=== PATIENT | female | born 1945 | race Caucasian/White ===

== ENCOUNTER → 2018-07-05 | Outpatient (CLI) | payer MEDICARE, OTHER ==
[2018-07-05 10:24] LABS: MEAN CORPUSCULAR HEMOGLOBIN 29.3 pg (27.0-34.8); MEAN CORPUSCULAR HGB CONC 33.1 g/dL (32.4-35.8); MEAN CORPUSCULAR VOLUME 88.6 fL (80-100); RED BLOOD COUNT 4.85 x10^6/uL (3.82-5.3)
[2018-07-05 10:25] LABS: BASOPHILS # (AUTO) 0.02 x10^3/uL (0-0.1); BASOPHILS % (AUTO) 1 % (0-1); EOSINOPHILS # (AUTO) 0.11 x10^3/uL (0-0.4); EOSINOPHILS % (AUTO) 2 % (1-7); LYMPHOCYTES # (AUTO) 1.65 x10^3/uL (1-3.4); LYMPHOCYTES % (AUTO) 31 % (22-44); MD NO; MEAN PLATELET VOLUME 8.6 fL (7.4-10.4); MONOCYTES # (AUTO) 0.33 x10^3/uL (0.2-0.8); MONOCYTES % (AUTO) 6 % (2-9); NEUTROPHILS # (AUTO) 3.28 x10^3/uL (1.8-6.8); NEUTROPHILS % (AUTO) 61 % (42-75); PLATELET COUNT 250 x10^3/uL (130-400); RED CELL DISTRIBUTION WIDTH 14.5 % (9.6-15.2)
[2018-07-05 10:28] LABS: ANION GAP 4 mmol/L (5-15); CALCIUM 8.9 mg/dL (8.5-10.1); CHLORIDE 109 mmol/L (98-107); CREATININE 0.86 mg/dL (0.55-1.02)
== END | disposition home or self-care (01) ==
LOC: STAR 08:53
PROVIDERS: ATTEND Orthopaedic Surgery
DX: Z01.818 Encounter for other preprocedural examination (principal); M17.0 Bilateral primary osteoarthritis of knee; M19.011 Primary osteoarthritis, right shoulder; Z96.641 Presence of right artificial hip joint
CPT/HCPCS: 36415; 80048; 85025; 87081; 93005

== ENCOUNTER 2018-07-11 06:18 | Observation (INO) | payer MEDICARE, OTHER ==
[~2018-07-11] VITALS: Ht 162.6 cm; Wt 73.1 kg
[~2018-07-11 06:18] MED LIST: ASCO500T8 PO; CALC500T93 PO; CHOL2000 PO; FISH1CAP PO; GLUC-32 PO; MULT1TAB60 PO; TURM538C PO; VIT1CAPS11 PO
[2018-07-11] MEDS ORDERED: LACTATED RINGERS 1,000 ML IV SCH (06:55)
[2018-07-11] MEDS ORDERED: GABAPENTIN 300 MG CAPSULE PO ONE (07:00)
[2018-07-11] MEDS ORDERED: ACETAMINOPHEN 500 MG TABLET PO ONE (07:00)
[2018-07-11 07:24] VITALS: BP 109/74
[2018-07-11] MEDS ORDERED: MIDAZOLAM 1 MG/ML, 2ML ONE (07:54)
[2018-07-11] MEDS ORDERED: FENTANYL PF 100 MCG/2ML ONE ×2 (07:54→10:15)
[2018-07-11] MEDS ORDERED: FENTANYL PF 250 MCG/5ML ONE (09:22)
[2018-07-11] MEDS ORDERED: LIDOCAINE 2%, 6 ML JEL.PF.APP MM ONE (09:24)
[2018-07-11] MEDS ORDERED: SCOPOLAMINE PATCH, 1.5MG PATCH.TD72 TD ONE (09:26)
[2018-07-11] MEDS ORDERED: PROMETHAZINE 25 MG/ML, 1ML IV PRN (09:30)
[2018-07-11] MEDS ORDERED: OXYcodone 5 MG/5 ML ORAL.SOL UDC PO PRN (09:30)
[2018-07-11] MEDS ORDERED: ALBUTEROL/IPRATROPIUM 2.5MG/0.5MG, 3 ML NPPB PRN (09:30)
[2018-07-11] MEDS ORDERED: MIDAZOLAM 1 MG/ML, 2ML IV PRN (09:30)
[2018-07-11] MEDS ORDERED: ONDANSETRON 2MG/ML, 2ML IV PRN ×2 (09:30→10:30)
[2018-07-11] MEDS ORDERED: MEPERIDINE/PF 25MG/0.5ML IVPush PRN (09:30)
[2018-07-11] MEDS ORDERED: METOPROLOL 1 MG/ML, 5ML IV PRN (09:30)
[2018-07-11] MEDS ORDERED: hydrALAzine 20 MG/ML, 1ML IV PRN (09:30)
[2018-07-11] MEDS ORDERED: OXYcodone 5 MG/5 ML ORAL.SOL UDC ONE (10:15)
[2018-07-11] MEDS ORDERED: HYDROmorphone 2 MG/ML, 1ML ONE (10:15)
[2018-07-11] MEDS ORDERED: HYDROmorphone 1 MG/ML, 1ML INJ IVPush PRN (10:30)
[2018-07-11] MEDS: FENTANYL PF 100 MCG/2ML IV PRN ×2 (10:30→10:41)
[2018-07-11] MEDS ORDERED: DIAZEPAM 5 MG TABLET PO PRN (10:30)
[2018-07-11] MEDS ORDERED: BISACODYL 10 MG SUPP PR PRN (10:30)
[2018-07-11] MEDS ORDERED: ONDANSETRON 4 MG TABLET PO PRN (10:30)
[2018-07-11] MEDS ORDERED: SCOPOLAMINE PATCH, 1.5MG PATCH.TD72 TD SCH (10:30)
[2018-07-11] MEDS ORDERED: ALUMINUM/MAG/SIMETHICONE 30 ML UDC PO PRN (10:30)
[2018-07-11] MEDS ORDERED: POLYETHYLENE GLYCOL 17 GM PACKET PO PRN (10:30)
[2018-07-11] MEDS ORDERED: PROMETHAZINE 12.5 MG SUPP PR PRN (10:30)
[2018-07-11] MEDS ORDERED: ZOLPIDEM 5MG TABLET PO PRN (10:30)
[2018-07-11] MEDS: HYDROmorphone 2 MG/ML, 1ML IVPush PRN ×2 (10:30→10:41)
[2018-07-11] MEDS ORDERED: MAGNESIUM HYDROXIDE 8%, 30ML UDC PO PRN (10:30)
[2018-07-11] MEDS ORDERED: DEXAMETHASONE 4 MG/ML, 1ML IVPush ONE (10:30)
[2018-07-11] MEDS ORDERED: DIPHENHYDRAMINE 50 MG CAPSULE PO PRN (10:30)
[2018-07-11] MEDS ORDERED: PSYLLIUM PACKET PO PRN (10:30)
[2018-07-11] MEDS ORDERED: PROMETHAZINE 25 MG/ML, 1ML IM PRN (10:30)
[2018-07-11] MEDS ORDERED: SENNA/DOCUSATE TABLET PO PRN (10:30)
[2018-07-11] MEDS ORDERED: TRANEXAMIC ACID 1,000 MG in SODIUM CHLORIDE 0.9% 100 ML IVPB ONE (10:45)
[2018-07-11] MEDS ORDERED: ONDANSETRON 2MG/ML, 2ML ONE (11:11)
[2018-07-11] MEDS ORDERED: CEFAZOLIN 1,000 MG ONE (11:11)
[2018-07-11] MEDS ORDERED: DEXAMETHASONE 4 MG/ML, 1ML ONE (11:11)
[2018-07-11] MEDS ORDERED: BUPIVACAINE/PF 0.25% ONE (11:11)
[2018-07-11] MEDS ORDERED: PROPOFOL 10 MG/ML, 20ML ONE (11:11)
[2018-07-11 11:47] VITALS: BP 106/56
[2018-07-11] MEDS: KETOROLAC 30 MG/1 ML IV SCH ×2 (12:49→22:02)
[2018-07-11] MEDS: D5%-0.45% NACL 1,000 ML IV SCH ×2 (12:49→20:30)
[2018-07-11] MEDS: ACETAMINOPHEN 500 MG TABLET PO SCH ×2 (15:28→22:02)
[2018-07-11 15:32] VITALS: BP 106/56
[2018-07-11] MEDS: ASPIRIN 81 MG TABLET EC PO SCH ×2 (18:07→21:00)
[2018-07-11 19:12] VITALS: BP 90/57
[2018-07-11] MEDS: CEFAZOLIN PMX 2GM/50ML 50 ML IVPB SCH (19:51)
[2018-07-11] MEDS: DOCUSATE 100 MG CAPSULE PO SCH (22:02)
[2018-07-12 00:13] VITALS: BP_SYST 87; BP_SYST 89; BP_DIAS 47; BP_DIAS 56
[2018-07-12] MEDS: D5%-0.45% NACL 1,000 ML IV SCH (02:35)
[2018-07-12] MEDS: ACETAMINOPHEN 500 MG TABLET PO SCH ×2 (04:09→08:58)
[2018-07-12] MEDS: CEFAZOLIN PMX 2GM/50ML 50 ML IVPB SCH (04:09)
[2018-07-12 05:11] VITALS: BP_SYST 84; BP_SYST 89; BP_DIAS 47
[2018-07-12] MEDS: KETOROLAC 30 MG/1 ML IV SCH (05:57)
[2018-07-12] MEDS ORDERED: DEXAMETHASONE 4 MG/ML, 1ML IVPush ONE (06:00)
[2018-07-12] MEDS ORDERED: SODIUM CHLORIDE 0.9% 1,000ML IVBOLUS ONE (07:00)
[2018-07-12 07:41] VITALS: BP 89/45
[2018-07-12] MEDS: ASPIRIN 81 MG TABLET EC PO SCH (08:58)
[2018-07-12] MEDS: DOCUSATE 100 MG CAPSULE PO SCH (08:58)
[2018-07-12] MEDS ORDERED: MULTIVITAMINS/MINERALS TABLET PO SCH (09:00)
[2018-07-12 10:39] VITALS: BP 89/47
== END 2018-07-12 11:21 | disposition home or self-care (01) ==
LOC: OUT 06:18 → ORIP 10:16 → 4NOR 11:36 → DCLOUNGE 07-12 11:14
PROVIDERS: ADMIT Orthopaedic Surgery; ATTEND Orthopaedic Surgery
DX: M17.12 Unilateral primary osteoarthritis, left knee (principal); Z88.1 Allergy status to other antibiotic agents; Z88.8 Allergy status to other drugs, medicaments and biological substances; Z98.890 Other specified postprocedural states; Z79.899 Other long term (current) drug therapy
CPT/HCPCS: 27447; 36415; 64447; 73560; 85014; 85018; 96365; 96366; 96375; 96376; 97110; 97161; C1713; C1776; G0378; J0171; J0690; J1100; J1170; J1885; J2250; J2405; J2704; J2795; J3010; J3490; J7030; J7120; Q0162

== ENCOUNTER 2020-07-16 07:33 | Outpatient (CLI) | payer MEDICARE, OTHER ==
[~2020-07-16 07:33] MED LIST changes: +MULT-449 PO; -MULT1TAB60 PO
[2020-07-16 08:45] LABS: BASOPHILS % (AUTO) 1 % (0-1); EOSINOPHILS % (AUTO) 3 % (1-7); LYMPHOCYTES % (AUTO) 28 % (22-44); MEAN CORPUSCULAR HEMOGLOBIN 29.2 pg (27.0-34.8); MEAN CORPUSCULAR HGB CONC 32.9 g/dL (32.4-35.8); MEAN PLATELET VOLUME 8.5 fL (7.4-10.4); MONOCYTES % (AUTO) 7 % (2-9); NEUTROPHILS % (AUTO) 62 % (42-75); PLATELET COUNT 244 x10^3/uL (130-400); RED CELL DISTRIBUTION WIDTH 14.5 % (9.6-15.2)
[2020-07-16 08:48] LABS: MD NO
[2020-07-16 08:52] LABS: ANION GAP 4 mmol/L (5-15); CALCIUM 9.1 mg/dL (8.5-10.1); CHLORIDE 109 mmol/L (98-107); CREATININE 0.84 mg/dL (0.55-1.02)
== END 2020-07-16 23:59 | disposition home or self-care (01) ==
LOC: STAR 07:33
PROVIDERS: ATTEND Orthopaedic Surgery
DX: Z01.812 Encounter for preprocedural laboratory examination (principal); Z20.822 Contact with and (suspected) exposure to COVID-19; Z01.818 Encounter for other preprocedural examination; M17.11 Unilateral primary osteoarthritis, right knee; Z79.01 Long term (current) use of anticoagulants
CPT/HCPCS: 36415; 80048; 85025; 87081; 93005; U0003

== ENCOUNTER 2020-07-22 06:55 | Observation (INO) | payer MEDICARE, OTHER ==
[~2020-07-22] VITALS: Ht 160 cm; Wt 86.3 kg
[~2020-07-22 06:55] MED LIST changes: +EPINEPHRINE 1 MG/ML, 1ML ONE; +KETOROLAC 60 MG/2 ML ONE; +ROPIvacaine/PF 0.2%, 20 ML ONE; +SODIUM CHLORIDE 0.9% 50 ML ONE; +TRANEXAMIC ACID 100 MG/ML, 10ML ONE; +VANCOMYCIN 1,000 MG ONE
[2020-07-22] MEDS ORDERED: CHLORHEXIDINE 15 ML UDC PO ONE (07:30)
[2020-07-22] MEDS ORDERED: LACTATED RINGERS 1,000 ML IV SCH (07:30)
[2020-07-22] MEDS ORDERED: TRANEXAMIC ACID 1,000 MG in SODIUM CHLORIDE 0.9% 100 ML IVPB ONE (09:30)
[2020-07-22] MEDS ORDERED: DIAZEPAM 5 MG TABLET PO PRN (09:30)
[2020-07-22] MEDS ORDERED: ONDANSETRON 2MG/ML, 2ML IV PRN (09:30)
[2020-07-22] MEDS ORDERED: HYDROmorphone 1 MG/ML, 1ML INJ IVPush PRN (09:30)
[2020-07-22] MEDS ORDERED: OXYcodone ORAL.CONC 20 MG/ML PO PRN (09:30)
[2020-07-22] MEDS ORDERED: PROMETHAZINE 25 MG/ML, 1ML IM PRN (09:30)
[2020-07-22] MEDS ORDERED: KETOROLAC 30 MG/1 ML IV SCH (09:30)
[2020-07-22] MEDS ORDERED: MIDAZOLAM 1 MG/ML, 2ML ONE (09:44)
[2020-07-22] MEDS ORDERED: FENTANYL PF 250 MCG/5ML ONE (09:45)
[2020-07-22] MEDS ORDERED: LIDOCAINE-MPF 2% ,5ML ONE (10:26)
[2020-07-22] MEDS ORDERED: DEXAMETHASONE 4 MG/ML, 5ML ONE (10:26)
[2020-07-22] MEDS ORDERED: ONDANSETRON 2MG/ML, 2ML ONE (10:26)
[2020-07-22] MEDS ORDERED: CEFAZOLIN 1,000 MG ONE ×2 (10:26)
[2020-07-22] MEDS ORDERED: ROCURONIUM 10MG/ML,5ML ONE (10:26)
[2020-07-22] MEDS ORDERED: PROPOFOL 10 MG/ML, 20ML ONE (10:26)
[2020-07-22] MEDS ORDERED: ACETAMINOPHEN 325 MG TABLET PO PRN (10:30)
[2020-07-22] MEDS ORDERED: MEPERIDINE/PF 25MG/0.5ML IVPush PRN (10:30)
[2020-07-22] MEDS ORDERED: hydrALAzine 20 MG/ML, 1ML IV PRN (10:30)
[2020-07-22] MEDS ORDERED: ONDANSETRON 2MG/ML, 2ML IVPush PRN (10:30)
[2020-07-22] MEDS ORDERED: LABETALOL 5MG/ML, 20ML IV PRN (10:30)
[2020-07-22] MEDS ORDERED: DIAZEPAM 5 MG/ML, 2ML IVPush PRN (10:30)
[2020-07-22] MEDS ORDERED: OXYcodone 5 MG/5 ML ORAL.SOL UDC PO PRN (10:30)
[2020-07-22] MEDS ORDERED: GLYCOPYRROLATE 0.2MG/1ML, 5ML ONE (11:29)
[2020-07-22] MEDS ORDERED: FENTANYL PF 100 MCG/2ML ONE ×2 (11:53→12:29)
[2020-07-22] MEDS ORDERED: OXYcodone 5 MG/5 ML ORAL.SOL UDC ONE (11:55)
[2020-07-22] MEDS ORDERED: HYDROmorphone 1 MG/ML, 1ML INJ ONE (11:55)
[2020-07-22] MEDS: FENTANYL PF 100 MCG/2ML IV PRN ×4 (11:56→12:50)
[2020-07-22] MEDS: HYDROmorphone 1 MG/ML, 1ML INJ IVPush PRN ×2 (12:10→12:27)
[2020-07-22 13:15] VITALS: BP 118/75
[2020-07-22] MEDS: ACETAMINOPHEN 325 MG TABLET PO PRN ×2 (15:42→20:39)
[2020-07-22] MEDS: OXYcodone 5 MG/5 ML ORAL.SOL UDC PO PRN ×2 (16:02→20:40)
[2020-07-22] MEDS: ONDANSETRON 4 MG TABLET PO PRN (17:35)
[2020-07-22] MEDS: KETOROLAC 30 MG/1 ML IV SCH (18:33)
[2020-07-22] MEDS: CEFAZOLIN PMX 1GM/50ML 50 ML IVPB SCH (18:34)
[2020-07-22 19:25] VITALS: BP 124/66
[2020-07-22] MEDS: DOCUSATE 100 MG CAPSULE PO SCH (20:39)
[2020-07-23 00:18] VITALS: BP 107/52
[2020-07-23] MEDS: CEFAZOLIN PMX 1GM/50ML 50 ML IVPB SCH (02:27)
[2020-07-23] MEDS: KETOROLAC 30 MG/1 ML IV SCH ×2 (02:28→11:00)
[2020-07-23] MEDS: ONDANSETRON 4 MG TABLET PO PRN (03:21)
[2020-07-23 04:21] VITALS: BP 103/55
[2020-07-23] MEDS ORDERED: DEXAMETHASONE 4 MG/ML, 1ML IVPush ONE (06:00)
[2020-07-23 07:02] VITALS: BP 91/59
[2020-07-23] MEDS ORDERED: RIVAROXABAN 10 MG TABLET PO SCH (09:00)
[2020-07-23] MEDS ORDERED: ONDA4TAB7 PO (09:07)
[2020-07-23] MEDS: DOCUSATE 100 MG CAPSULE PO SCH (09:13)
[2020-07-23 12:29] VITALS: BP 91/54
[2020-07-23] MEDS: ACETAMINOPHEN 325 MG TABLET PO PRN (12:34)
== END 2020-07-23 13:22 | disposition home or self-care (01) ==
LOC: OUT 06:55 → ORIP 09:13 → 4NE 13:17 → DCLOUNGE 07-23 13:12
PROVIDERS: ADMIT Orthopaedic Surgery; ATTEND Orthopaedic Surgery
DX: M17.11 Unilateral primary osteoarthritis, right knee (principal); M21.061 Valgus deformity, not elsewhere classified, right knee; Z79.899 Other long term (current) drug therapy; Z96.651 Presence of right artificial knee joint
CPT/HCPCS: 27447; 73560; 96365; 96375; 96376; 97110; 97161; C1713; C1776; G0378; J0171; J0690; J1100; J1170; J1885; J2250; J2795; J3010; J7120; Q0162; J2405; J2704; J3370